=== PATIENT | female | born 1970 | race Caucasian/White ===

== ENCOUNTER 2023-06-27 09:58 | Outpatient (CLI) | payer MEDICAID ==
[~2023-06-27] VITALS: Ht 147.3 cm; Wt 74.8 kg
[~2023-06-27 09:58] MED LIST: CALC355O3 PO; CLON-527 PO; METH2.5T PO; NORCO10T PO; PAM25C PO; PANT40TA39 PO; VENL25TA48 PO
[2023-06-27] MEDS: albuterol 2.5 MG/3 ML nebule NEB PRN (10:39)
[2023-06-27 10:40] VITALS: PULSE 74; RESP 14; O2SAT 96
== END 2023-06-27 23:59 | disposition home or self-care (01) ==
LOC: RT 09:58
PROVIDERS: ATTEND Registered Nurse
DX: J44.9 Chronic obstructive pulmonary disease, unspecified (principal)
CPT/HCPCS: 94060; 94760